=== PATIENT | male | born 1960 | race Caucasian/White ===

== ENCOUNTER 2020-08-14 16:23 | Emergency (ER) | payer MEDICARE, MEDICAID ==
[~2020-08-14] VITALS: Ht 180.3 cm; Wt 113.4 kg
[2020-08-14 19:39] VITALS: BP 144/99
[2020-08-14] MEDS ORDERED: HYDROcodone-ACET 10/325MG TAB PO ONE (20:00)
== END 2020-08-14 21:00 | disposition home or self-care (01) ==
LOC: ER 16:25
DX: M77.11 Lateral epicondylitis, right elbow (principal); I10 Essential (primary) hypertension
CPT/HCPCS: 73080

== ENCOUNTER 2021-12-23 11:54 | Emergency (ER) | payer OTHER, MEDICAID ==
[~2021-12-23] VITALS: Ht 180.3 cm; Wt 113.4 kg
[2021-12-23 12:53] LABS: Basophils # (auto) 0 10 ^3/uL (0-0.2); Basophils % (auto) 0.4 % (0.0-2.0); Eosinophils # (auto) 0.1 10 ^3/uL (0-0.8); Eosinophils % (auto) 1.1 % (0.0-7.0); Hemoglobin 14.7 g/dL (13.5-17.5); Lymphocytes # (auto) 1.9 10 ^3/uL (0.4-5.4); Lymphocytes % (auto) 28.5 % (10.0-50.0); Mean Corpuscular Hemoglobin 31.2 pg (28.0-32.0); Mean Corpuscular Hgb Conc. 34.3 g/dL (32.0-36.0); Monocytes # (auto) 0.5 10 ^3/uL (0-1.3); Monocytes % (auto) 6.9 % (0.0-12.0); Neutrophils # (auto) 4.2 10 ^3/uL (1.6-8.6); Neutrophils % (auto) 63.1 % (37.0-80.0); Red Blood Cells 4.73 10^6/uL (4.5-5.90); Red Cell Distribution Width 13.4 % (11.8-14.3); White Blood Cell 6.6 10^3/uL (4.4-10.8)
[2021-12-23 13:28] LABS: Albumin 3.8 g/dL (3.4-5.0); BUN/Creatinine Ratio 19.2; Calcium 8.7 mg/dL (8.5-10.1); Magnesium 2.3 mg/dL (1.6-2.6)
[2021-12-23 13:33] LABS: Bilirubin, Total 0.5 mg/dL (0.2-1.0); Total Protein 7.1 g/dL (6.4-8.2)
[2021-12-23 13:56] LABS: Urine Bacteria NONE SEEN /hpf (None Seen); Urine Blood Negative /uL (Negative); Urine Specific Gravity 1.009 (1.001-1.035); Urine WBC <1 /hpf (0 - 3)
[2021-12-23] MEDS ORDERED: IOHEXOL 350 MG/ML 100ML IJ ONE (15:45)
[2021-12-23 17:40] VITALS: BP 144/88
== END 2021-12-23 17:57 | disposition home or self-care (01) ==
LOC: ER 11:54
DX: S00.83XA Contusion of other part of head, initial encounter (principal); S00.03XA Contusion of scalp, initial encounter; S90.111A Contusion of right great toe without damage to nail, initial encounter; R07.89 Other chest pain; I10 Essential (primary) hypertension; R55 Syncope and collapse; M70.22 Olecranon bursitis, left elbow; G89.29 Other chronic pain; M54.9 Dorsalgia, unspecified; R79.1 Abnormal coagulation profile; E78.5 Hyperlipidemia, unspecified; Z88.8 Allergy status to other drugs, medicaments and biological substances; Z91.010 Allergy to peanuts; W19.XXXA Unspecified fall, initial encounter; Y93.89 Activity, other specified; Y92.89 Other specified places as the place of occurrence of the external cause; Y99.8 Other external cause status
CPT/HCPCS: 36415; 70450; 70486; 71045; 71275; 72125; 73080; 73660; 80053; 81001; 83735; 84443; 84484; 85025; 85379; 93005; 99285; L0120; Q9967

== ENCOUNTER 2022-01-24 21:47 | Emergency (ER) | payer OTHER, MEDICAID ==
[~2022-01-24] VITALS: Ht 180.3 cm; Wt 108.9 kg
[2022-01-25] MEDS ORDERED: HYDROmorphone HCL 2 MG/ML VL IM ONE (01:45)
[2022-01-25] MEDS ORDERED: ceFAZolin 1GM/50ML 100 ML IV ONE (03:15)
[2022-01-25] MEDS ORDERED: HYDR-4798 PO (05:06)
[2022-01-25 05:13] VITALS: BP 132/74
== END 2022-01-25 05:32 | disposition home or self-care (01) ==
LOC: ER 21:49
DX: S51.841A Puncture wound with foreign body of right forearm, initial encounter (principal); E78.5 Hyperlipidemia, unspecified; I10 Essential (primary) hypertension; W26.8XXA Contact with other sharp object(s), not elsewhere classified, initial encounter; Y93.89 Activity, other specified; Y92.89 Other specified places as the place of occurrence of the external cause; Y99.8 Other external cause status
CPT/HCPCS: 76881; 96365; 96366; 96372

== ENCOUNTER 2022-01-28 14:18 | Emergency (ER) | payer OTHER, MEDICAID ==
[~2022-01-28] VITALS: Ht 180.3 cm; Wt 108.9 kg
[~2022-01-28 14:18] MED LIST: HYDR-4798 PO
[2022-01-28 14:33] VITALS: BP 137/75
[2022-01-28] MEDS ORDERED: CLIN300C8 PO (16:33)
== END 2022-01-28 16:51 | disposition home or self-care (01) ==
LOC: ER 14:18
DX: S80.851A Superficial foreign body, right lower leg, initial encounter (principal); I10 Essential (primary) hypertension; E78.5 Hyperlipidemia, unspecified; Z79.2 Long term (current) use of antibiotics; Z79.899 Other long term (current) drug therapy; Z91.010 Allergy to peanuts; Z88.8 Allergy status to other drugs, medicaments and biological substances; X58.XXXA Exposure to other specified factors, initial encounter; Y93.89 Activity, other specified; Y92.89 Other specified places as the place of occurrence of the external cause; Y99.8 Other external cause status
CPT/HCPCS: 73590